=== PATIENT | female | born 1945 | race Two or more races ===

== ENCOUNTER 2016-11-04 10:44 | Emergency (ER) | payer OTHER, MEDICAID ==
[~2016-11-04] VITALS: Ht 149.9 cm; Wt 65.8 kg
[~2016-11-04 10:44] MED LIST: AML5T PO; ASPI325T4 PO; OMEP20CA74 OR; ROSU20TA14 PO
[2016-11-04 13:26] VITALS: BP 127/73
== END 2016-11-04 14:07 | disposition home or self-care (01) ==
LOC: ER 10:44 → EDUNIT# 10:44 → ER 14:07
DX: G43.B0 Ophthalmoplegic migraine, not intractable (principal); Z88.0 Allergy status to penicillin; Z88.1 Allergy status to other antibiotic agents
CPT/HCPCS: 70450

== ENCOUNTER 2018-02-18 22:00 | Inpatient (IN) | payer OTHER, MEDICAID ==
[~2018-02-18] VITALS: Ht 149.9 cm; Wt 65.7 kg
[~2018-02-18 22:00] MED LIST changes: -AML5T PO; +ATOR10TA PO; -ROSU20TA14 PO
[2018-02-18] MEDS ORDERED: cefTRIAXone 1GM/50ML D5W 50 ML IV ONE (23:30)
[2018-02-18] MEDS ORDERED: VANCOMYCIN 1GM/250ML 250 ML IV ONE (23:30)
[2018-02-18 23:38] LABS: Basophils # (auto) 0.1 uL; Basophils % (auto) 0.8 % (0.0-2.0); Eosinophils # (auto) 0.3 uL; Lymphocytes # (auto) 1.5 uL; Lymphocytes % (auto) 14.4 % (10.0-50.0); Mean Corpuscular Hemoglobin 29.6 pg (28.0-32.0); Mean Corpuscular Hgb Conc. 33.2 g/dL (32.0-36.0); Monocytes # (auto) 0.6 uL; Monocytes % (auto) 6.1 % (0.0-12.0); Neutrophils # (auto) 7.8 uL; Neutrophils % (auto) 75.7 % (37.0-80.0); Platelet Count (auto) 313 10^3/uL (140-450); Red Blood Cells 4.05 10^6/uL (4.0-5.20); Red Cell Distribution Width 14.3 % (11.8-14.3); White Blood Cell 10.4 10^3/uL (4.4-10.8)
[2018-02-18 23:53] LABS: Albumin 3.3 g/dL (3.4-5.0); Calcium 9.1 mg/dL (8.5-10.1); Potassium 3.4 mmol/L (3.5-5.1)
[2018-02-18 23:55] LABS: BUN/Creatinine Ratio 23.4
[2018-02-18 23:58] LABS: Bilirubin, Total 0.3 mg/dL (0.2-1.0); Total Protein 7.3 g/dL (6.4-8.2)
[2018-02-19] MEDS ORDERED: TEMAZEPAM 15 MG CAP PO PRN (05:00)
[2018-02-19] MEDS: CLINDAMYCIN 600MG IV 50 ML IV SCH ×3 (07:36→21:26)
[2018-02-19 09:00] VITALS: BP 115/69
[2018-02-19] MEDS: FAMOTIDINE 20 MG TAB PO SCH ×2 (09:16→21:26)
[2018-02-19] MEDS: ACETAMINOPHEN 325 MG TAB PO PRN ×2 (09:19→20:07)
[2018-02-19 12:58] VITALS: BP 116/70
[2018-02-19] MEDS: HYDROcodone-ACET 5/325MG TAB PO PRN ×2 (16:14→20:08)
[2018-02-19 17:01] VITALS: BP 121/71
[2018-02-19] MEDS: cefTRIAXone 1GM/50ML D5W 50 ML IV SCH (20:08)
[2018-02-19 22:00] VITALS: BP 109/65
[2018-02-20] MEDS: HYDROcodone-ACET 5/325MG TAB PO PRN ×3 (04:41→21:12)
[2018-02-20 05:00] VITALS: BP 122/69
[2018-02-20] MEDS: CLINDAMYCIN 600MG IV 50 ML IV SCH ×3 (05:22→22:00)
[2018-02-20 06:01] LABS: Basophils # (auto) 0.1 uL; Basophils % (auto) 0.8 % (0.0-2.0); Eosinophils # (auto) 0.4 uL; Eosinophils % (auto) 5.2 % (0.0-7.0); Hematocrit 34.6 % (36.0-46.0); Hemoglobin 11.3 g/dL (12.2-16.2); Lymphocytes # (auto) 2.3 uL; Lymphocytes % (auto) 32.6 % (10.0-50.0); Mean Corpuscular Hgb Conc. 32.5 g/dL (32.0-36.0); Monocytes # (auto) 0.6 uL; Monocytes % (auto) 8.2 % (0.0-12.0); Neutrophils # (auto) 3.7 uL; Neutrophils % (auto) 53.2 % (37.0-80.0); Nucleated Red Blood Cells % 0.1 %; Platelet Count (auto) 322 10^3/uL (140-450); Red Blood Cells 3.89 10^6/uL (4.0-5.20); Red Cell Distribution Width 14.6 % (11.8-14.3); White Blood Cell 6.9 10^3/uL (4.4-10.8)
[2018-02-20 06:29] LABS: BUN/Creatinine Ratio 26.8; Bilirubin, Total 0.2 mg/dL (0.2-1.0); Total Protein 6.5 g/dL (6.4-8.2)
[2018-02-20] MEDS: ENOXAPARIN SOD 40 MG/0.4 ML SYRINGE SC SCH (08:34)
[2018-02-20] MEDS: ONDANSETRON HCL 4 MG/2 ML VIAL IV PRN ×2 (08:34→13:56)
[2018-02-20] MEDS: FAMOTIDINE 20 MG TAB PO SCH ×2 (08:34→21:13)
[2018-02-20 09:21] VITALS: BP 120/70
[2018-02-20 12:53] VITALS: BP 128/80
[2018-02-20] MEDS ORDERED: ASPirin 325 MG TAB PO ONE (14:00)
[2018-02-20 17:19] VITALS: BP 124/70
[2018-02-20] MEDS: cefTRIAXone 1GM/50ML D5W 50 ML IV SCH (21:06)
[2018-02-20 21:53] VITALS: BP 130/67
[2018-02-20] MEDS: ATORVASTATIN 20 MG TAB PO SCH (22:00)
[2018-02-21 05:21] VITALS: BP 106/59
[2018-02-21] MEDS: CLINDAMYCIN 600MG IV 50 ML IV SCH (06:11)
[2018-02-21 08:53] VITALS: BP 111/66
[2018-02-21] MEDS: ONDANSETRON HCL 4 MG/2 ML VIAL IV PRN ×2 (09:20→20:20)
[2018-02-21] MEDS: ASPirin 325 MG TAB PO SCH (09:21)
[2018-02-21] MEDS: ENOXAPARIN SOD 40 MG/0.4 ML SYRINGE SC SCH (09:21)
[2018-02-21] MEDS: FAMOTIDINE 20 MG TAB PO SCH ×2 (09:21→20:15)
[2018-02-21] MEDS ORDERED: VANCOMYCIN PER PHARMACY 0 MG IV SCH (11:30)
[2018-02-21] MEDS ORDERED: MORPHINE SULFATE 4 MG/ML SYR/VIAL IV PRN (11:30)
[2018-02-21] MEDS: HYDROcodone-ACET 5/325MG TAB PO PRN ×2 (11:50→20:14)
[2018-02-21] MEDS: VANCOMYCIN 1GM/250ML 250 ML IV SCH (15:07)
[2018-02-21 16:06] VITALS: BP 112/65
[2018-02-21 17:00] VITALS: BP 118/70
[2018-02-21] MEDS: cefTRIAXone 1GM/50ML D5W 50 ML IV SCH (20:16)
[2018-02-21] MEDS: ATORVASTATIN 20 MG TAB PO SCH (20:16)
[2018-02-21 22:00] VITALS: BP 121/70
[2018-02-22 05:00] VITALS: BP 135/73
[2018-02-22 06:38] LABS: Basophils # (auto) 0.1 uL; Basophils % (auto) 0.9 % (0.0-2.0); Eosinophils # (auto) 0.4 uL; Eosinophils % (auto) 4.8 % (0.0-7.0); Hematocrit 39.5 % (36.0-46.0); Lymphocytes # (auto) 2.4 uL; Lymphocytes % (auto) 27.3 % (10.0-50.0); Mean Corpuscular Hemoglobin 29.3 pg (28.0-32.0); Mean Corpuscular Hgb Conc. 32.8 g/dL (32.0-36.0); Mean Corpuscular Volume 89.5 fL (80.0-100.0); Monocytes # (auto) 0.6 uL; Monocytes % (auto) 7.2 % (0.0-12.0); Neutrophils # (auto) 5.3 uL; Neutrophils % (auto) 59.8 % (37.0-80.0); Nucleated Red Blood Cells % 0.1 %; Platelet Count (auto) 400 10^3/uL (140-450); Red Blood Cells 4.42 10^6/uL (4.0-5.20); Red Cell Distribution Width 14.6 % (11.8-14.3); White Blood Cell 8.9 10^3/uL (4.4-10.8)
[2018-02-22 06:47] LABS: BUN/Creatinine Ratio 22.8; Calcium 9.3 mg/dL (8.5-10.1); Potassium 4.2 mmol/L (3.5-5.1)
[2018-02-22 08:52] VITALS: BP 118/68
[2018-02-22] MEDS: ASPirin 325 MG TAB PO SCH (09:03)
[2018-02-22] MEDS: FAMOTIDINE 20 MG TAB PO SCH ×2 (09:03→20:24)
[2018-02-22 12:13] VITALS: BP 137/76
[2018-02-22] MEDS ORDERED: VANCOMYCIN 1GM/250ML 250 ML IV SCH (12:15)
[2018-02-22] MEDS: VANCOMYCIN 1GM/250ML 250 ML IV SCH (14:57)
[2018-02-22 17:04] VITALS: BP 113/84
[2018-02-22] MEDS: diphenhdrAMINE HCL 25 MG CAP PO PRN (17:40)
[2018-02-22] MEDS: ATORVASTATIN 20 MG TAB PO SCH (20:24)
[2018-02-22] MEDS: cefTRIAXone 1GM/50ML D5W 50 ML IV SCH (20:25)
[2018-02-22 22:00] VITALS: BP 121/66
[2018-02-23 05:20] VITALS: BP 101/56
[2018-02-23 06:26] LABS: Basophils # (auto) 0.1 uL; Basophils % (auto) 0.7 % (0.0-2.0); Eosinophils # (auto) 0.4 uL; Eosinophils % (auto) 4.7 % (0.0-7.0); Hematocrit 39.1 % (36.0-46.0); Hemoglobin 12.8 g/dL (12.2-16.2); Lymphocytes # (auto) 1.9 uL; Mean Corpuscular Hemoglobin 28.8 pg (28.0-32.0); Mean Corpuscular Hgb Conc. 32.8 g/dL (32.0-36.0); Mean Corpuscular Volume 87.9 fL (80.0-100.0); Monocytes # (auto) 0.7 uL; Monocytes % (auto) 7.2 % (0.0-12.0); Neutrophils % (auto) 66.4 % (37.0-80.0); Nucleated Red Blood Cells % 0.1 %; Platelet Count (auto) 394 10^3/uL (140-450); Red Blood Cells 4.44 10^6/uL (4.0-5.20); Red Cell Distribution Width 14.5 % (11.8-14.3)
[2018-02-23 06:43] LABS: Albumin 3.5 g/dL (3.4-5.0); Potassium 4.3 mmol/L (3.5-5.1)
[2018-02-23 06:44] LABS: BUN/Creatinine Ratio 23.9
[2018-02-23 06:47] LABS: Bilirubin, Total 0.3 mg/dL (0.2-1.0); Total Protein 7.2 g/dL (6.4-8.2)
[2018-02-23 09:05] VITALS: BP 114/58
[2018-02-23] MEDS: ASPirin 325 MG TAB PO SCH (09:22)
[2018-02-23] MEDS: FAMOTIDINE 20 MG TAB PO SCH (09:23)
[2018-02-23] MEDS: diphenhdrAMINE HCL 25 MG CAP PO PRN (09:26)
[2018-02-23 12:00] VITALS: BP 124/75
[2018-02-23 13:58] VITALS: BP 124/75
[2018-02-23] MEDS: VANCOMYCIN 1GM/250ML 250 ML IV SCH (15:00)
== END 2018-02-23 15:40 | disposition home or self-care (01) | DRG 863 ==
LOC: ER 22:00 → OVERFLOW 02-19 05:28 → EAST 02-19 08:27
PROVIDERS: ADMIT Nurse Practitioner; ATTEND Internal Medicine
DX: T81.43XA Infection following a procedure, organ and space surgical site, initial encounter (principal); L03.313 Cellulitis of chest wall; E75.6 Lipid storage disorder, unspecified; E78.00 Pure hypercholesterolemia, unspecified; B95.62 Methicillin resistant Staphylococcus aureus infection as the cause of diseases classified elsewhere; E78.5 Hyperlipidemia, unspecified; Z90.12 Acquired absence of left breast and nipple; Z85.3 Personal history of malignant neoplasm of breast; Z88.0 Allergy status to penicillin; Z88.2 Allergy status to sulfonamides; Z79.899 Other long term (current) drug therapy; Z79.82 Long term (current) use of aspirin; Z80.9 Family history of malignant neoplasm, unspecified; Z83.3 Family history of diabetes mellitus
CPT/HCPCS: 36415; 76642; 80048; 80053; 85025; 87040; 87077; 87081; 87186; 87205; 96365; 96367; 96372; 96375; G0378; J0696; J2405; J3490

== ENCOUNTER → 2018-07-04 | Outpatient (CLI) | payer OTHER, MEDICAID ==
[2018-07-04 10:42] LABS: Basophils # (auto) 0.1 uL; Basophils % (auto) 1.1 % (0.0-2.0); Eosinophils # (auto) 0.2 uL; Eosinophils % (auto) 3.4 % (0.0-7.0); Hematocrit 39.2 % (36.0-46.0); Hemoglobin 12.8 g/dL (12.2-16.2); Lymphocytes # (auto) 1.8 uL; Lymphocytes % (auto) 28.8 % (10.0-50.0); Mean Corpuscular Hemoglobin 28.6 pg (28.0-32.0); Mean Corpuscular Hgb Conc. 32.7 g/dL (32.0-36.0); Mean Corpuscular Volume 87.4 fL (80.0-100.0); Monocytes # (auto) 0.4 uL; Monocytes % (auto) 6.4 % (0.0-12.0); Neutrophils # (auto) 3.8 uL; Neutrophils % (auto) 60.3 % (37.0-80.0); Nucleated Red Blood Cells % 0.1 %; Platelet Count (auto) 255 10^3/uL (140-450); Red Blood Cells 4.48 10^6/uL (4.0-5.20); Red Cell Distribution Width 14.9 % (11.8-14.3); White Blood Cell 6.3 10^3/uL (4.4-10.8)
[2018-07-04 14:57] LABS: Albumin 3.9 g/dL (3.4-5.0); Calcium 8.5 mg/dL (8.5-10.1); Potassium 4.3 mmol/L (3.5-5.1)
[2018-07-04 15:02] LABS: BUN/Creatinine Ratio 14.1; Bilirubin, Total 0.5 mg/dL (0.2-1.0)
== END | disposition home or self-care (01) ==
LOC: LAB 10:00
PROVIDERS: ATTEND Internal Medicine
DX: C50.412 Malignant neoplasm of upper-outer quadrant of left female breast (principal); M81.0 Age-related osteoporosis without current pathological fracture; E78.00 Pure hypercholesterolemia, unspecified
CPT/HCPCS: 36415; 80053; 83615; 85025

== ENCOUNTER → 2018-08-26 | Outpatient (CLI) | payer OTHER, MEDICAID ==
[2018-08-26 12:54] LABS: Urine Bacteria NONE SEEN /hpf (None Seen); Urine Blood 1+ /uL (Negative); Urine Specific Gravity 1.017 (1.001-1.035); Urine WBC 9 /hpf (0 - 5)
[2018-08-26 14:07] LABS: Cholesterol 132 mg/dL (< 200); HDL Cholesterol 34 mg/dL (40-59); LDL Cholesterol 53 mg/dL (< 100); Triglycerides 275 mg/dL (< 150)
== END | disposition home or self-care (01) ==
LOC: LAB 11:04
PROVIDERS: ATTEND Internal Medicine
DX: M08.00 Unspecified juvenile rheumatoid arthritis of unspecified site (principal); R21 Rash and other nonspecific skin eruption; E11.9 Type 2 diabetes mellitus without complications; M79.2 Neuralgia and neuritis, unspecified
CPT/HCPCS: 36415; 80061; 81001; 82043; 82607; 83036; 84443; 86038; 86200; 86431

== ENCOUNTER → 2018-09-26 | Outpatient (CLI) | payer OTHER, MEDICAID ==
[2018-09-26 10:49] LABS: Basophils # (auto) 0.1 uL; Basophils % (auto) 1.1 % (0.0-2.0); Eosinophils # (auto) 0.2 uL; Eosinophils % (auto) 2.9 % (0.0-7.0); Hematocrit 40.1 % (36.0-46.0); Hemoglobin 12.9 g/dL (12.2-16.2); Lymphocytes % (auto) 25.9 % (10.0-50.0); Mean Corpuscular Hemoglobin 28.7 pg (28.0-32.0); Mean Corpuscular Hgb Conc. 32.2 g/dL (32.0-36.0); Mean Corpuscular Volume 89.1 fL (80.0-100.0); Monocytes # (auto) 0.5 uL; Monocytes % (auto) 5.9 % (0.0-12.0); Neutrophils # (auto) 4.9 uL; Neutrophils % (auto) 64.2 % (37.0-80.0); Nucleated Red Blood Cells % 0.1 %; Platelet Count (auto) 257 10^3/uL (140-450); Red Cell Distribution Width 14.2 % (11.8-14.3); White Blood Cell 7.7 10^3/uL (4.4-10.8)
[2018-09-26 11:14] LABS: Albumin 3.6 g/dL (3.4-5.0); Calcium 8.7 mg/dL (8.5-10.1); Potassium 4.1 mmol/L (3.5-5.1)
[2018-09-26 11:20] LABS: BUN/Creatinine Ratio 19.1; Bilirubin, Total 0.3 mg/dL (0.2-1.0); Total Protein 7.2 g/dL (6.4-8.2)
== END | disposition home or self-care (01) ==
LOC: LAB 10:05
PROVIDERS: ATTEND Internal Medicine
DX: C50.412 Malignant neoplasm of upper-outer quadrant of left female breast (principal)
CPT/HCPCS: 36415; 80053; 83615; 85025

== ENCOUNTER → 2019-04-28 | Outpatient (CLI) | payer OTHER, MEDICAID ==
[~2019-04-28] MED LIST changes: +CLOB0.055 TOP; +PRED-158 PO; +RISE35TA PO; +TACR0.1O7 EX
[2019-04-28 12:09] LABS: Basophils # (auto) 0 uL; Basophils % (auto) 0.5 % (0.0-2.0); Eosinophils # (auto) 0.1 uL; Eosinophils % (auto) 2.2 % (0.0-7.0); Hematocrit 39.9 % (36.0-46.0); Hemoglobin 13.1 g/dL (12.2-16.2); Lymphocytes # (auto) 1.8 uL; Lymphocytes % (auto) 30.3 % (10.0-50.0); Mean Corpuscular Hemoglobin 28.8 pg (28.0-32.0); Mean Corpuscular Hgb Conc. 32.8 g/dL (32.0-36.0); Mean Corpuscular Volume 87.9 fL (80.0-100.0); Monocytes # (auto) 0.6 uL; Monocytes % (auto) 9.5 % (0.0-12.0); Neutrophils # (auto) 3.4 uL; Neutrophils % (auto) 57.5 % (37.0-80.0); Nucleated Red Blood Cells % 0.1 %; Platelet Count (auto) 233 10^3/uL (140-450); Red Blood Cells 4.54 10^6/uL (4.0-5.20); Red Cell Distribution Width 14.1 % (11.8-14.3); White Blood Cell 5.9 10^3/uL (4.4-10.8)
[2019-04-28 12:54] LABS: Potassium 3.7 mmol/L (3.5-5.1)
[2019-04-28 13:04] LABS: Albumin 3.7 g/dL (3.4-5.0); BUN/Creatinine Ratio 13.6; Bilirubin, Total 0.5 mg/dL (0.2-1.0); Calcium 9.1 mg/dL (8.5-10.1); Total Protein 7.4 g/dL (6.4-8.2)
== END | disposition home or self-care (01) ==
LOC: LAB 11:34
PROVIDERS: ATTEND Internal Medicine Hematology & Oncology
DX: C50.412 Malignant neoplasm of upper-outer quadrant of left female breast (principal)
CPT/HCPCS: 36415; 80053; 85025

== ENCOUNTER 2019-06-20 22:19 | Inpatient (IN) | payer OTHER, MEDICAID ==
[~2019-06-20] VITALS: Ht 149.9 cm; Wt 68.0 kg
[2019-06-20] MEDS ORDERED: VANCOMYCIN 1GM/250ML 250 ML IV ONE (23:00)
[2019-06-20] MEDS ORDERED: levoFLOXacin 500MG 100 ML IV ONE (23:00)
[2019-06-20] MEDS ORDERED: ACETAMINOPHEN 650 mg PER 20 mL UD PO ONE (23:00)
[2019-06-20] MEDS ORDERED: SODIUM CHLORIDE 0.9% 1,000 ML IV ONE (23:00)
[2019-06-20 23:37] LABS: Basophils # (auto) 0 10 ^3/uL (0-0.2); Basophils % (auto) 0.3 % (0.0-2.0); Eosinophils # (auto) 0 10 ^3/uL (0-0.8); Eosinophils % (auto) 0.3 % (0.0-7.0); Hemoglobin 13.2 g/dL (12.2-16.2); Lymphocytes # (auto) 1.6 10 ^3/uL (0.4-5.4); Mean Corpuscular Hemoglobin 28.7 pg (28.0-32.0); Mean Corpuscular Volume 86.8 fL (80.0-100.0); Monocytes # (auto) 0.9 10 ^3/uL (0-1.3); Monocytes % (auto) 6.8 % (0.0-12.0); Neutrophils # (auto) 10.7 10 ^3/uL (1.6-8.6); Neutrophils % (auto) 80.6 % (37.0-80.0); Nucleated Red Blood Cells % 0.3 %; Platelet Count (auto) 254 10^3/uL (140-450); Red Blood Cells 4.61 10^6/uL (4.0-5.20); Red Cell Distribution Width 15.1 % (11.8-14.3); White Blood Cell 13.2 10^3/uL (4.4-10.8)
[2019-06-20 23:56] LABS: INR 1.03 (0.9-1.15); Partial Thromboplastin Time 29.8 sec (23.64-32.05)
[2019-06-21 00:01] LABS: Alanine Aminotransferase 42 U/L (13-56); Albumin 3.3 g/dL (3.4-5.0); Amylase 20 U/L (25-115); Anion Gap 10 (5-15); Aspartate Aminotransferase 27 U/L (15-37); BUN/Creatinine Ratio 14.6; Blood Urea Nitrogen 12 mg/dL (7-18); Calcium 8.7 mg/dL (8.5-10.1); Carbon Dioxide 23 mmol/L (21-32); Chloride 101 mmol/L (98-107); GFR African American 88 mL/min; GFR Non-African American 73 mL/min; Glucose 108 mg/dL (74-106); Lipase 70 U/L (73-393); Magnesium 2.1 mg/dL (1.6-2.6); Potassium 3.6 mmol/L (3.5-5.1); Sodium 134 mmol/L (136-145)
[2019-06-21 00:07] LABS: Alkaline Phosphatase 107 U/L (45-117); Bilirubin, Total 0.9 mg/dL (0.2-1.0)
[2019-06-21] MEDS ORDERED: ONDANSETRON HCL 4 MG/2 ML VIAL IV ONE (00:15)
[2019-06-21] MEDS ORDERED: MORPHINE SULFATE 4 MG/ML SYR/VIAL IV ONE (00:15)
[2019-06-21 00:42] LABS: Urine Bacteria FEW /hpf (None Seen); Urine Blood TRACE /uL (Negative); Urine WBC 14 /hpf (0 - 5)
[2019-06-21] MEDS ORDERED: diphenhdrAMINE HCL 50 MG/1 ML VL IV ONE (01:15)
[2019-06-21] MEDS ORDERED: SODIUM CHLORIDE 0.9% 1,000 ML IV SCH (02:47)
[2019-06-21] MEDS ORDERED: TEMAZEPAM 15 MG CAP PO PRN (03:00)
[2019-06-21] MEDS ORDERED: ONDANSETRON HCL 4 MG/2 ML VIAL IV PRN (03:00)
[2019-06-21] MEDS ORDERED: NITROGLYCERIN 0.4 MG SL TAB SL PRN (03:15)
[2019-06-21] MEDS ORDERED: MORPHINE SULF INJ 2 MG/ML SYRINGE 1ML IV PRN (03:15)
--- NOTE | 2019-06-21 04:30 | NUR ---
Telemetry admit from MAEVE LOPEZ admitted to Telemetry unit. Patient oriented to Sarah Thomas RN primary RN, unit, room, bed, and unit policies regarding patient care and visiting hours. Patient now on continuous telemetry monitoring, tele box #4 and telemetry reading on arrival to unit is sinus tachycardia HR 104. Patient placed on bedside oxygen, weighed by bedscale and encouraged to call if they need something. All questions and concerns addressed, patient verbalized understanding.
--- NOTE | 2019-06-21 05:00 | NUR ---
Paged EMPLOYMENT AND CLAIMS AIDE Siddharth RE: Pain patient reports generalized body pain 12/22, awaiting call back, will continue care.
[2019-06-21 05:25] VITALS: BP 161/84
[2019-06-21 05:42] LABS: CRP High Sensitivity > 19 mg/dL (< 0.3); Lactate Dehydrogenase 194 U/L (84-246)
--- NOTE | 2019-06-21 05:45 | NUR ---
Rounds patient alert and oriented x 4, clear speech, follows direction. On oxygen at 2L via NC with even and unlabored respirations. Gallagher intact and patent and draining to gravity. BSC within reach. Bed lowest locked position with side rails up x 2 and selena light within reach, instructed to call for assistance PRN. Will continue care.
--- NOTE | 2019-06-21 05:55 | NUR ---
Received call back updated on patient status, new order received, will carry out.
[2019-06-21] MEDS ORDERED: traMADol HCL 50 MG TAB PO ONE (06:00)
--- NOTE | 2019-06-21 06:00 | NUR ---
Cooling Measures applied. Patient currently has temp of 100.4 , cooling measures in place.
[2019-06-21] MEDS: ACETAMINOPHEN 500 MG TAB PO PRN ×2 (06:29→15:38)
--- NOTE | 2019-06-21 07:20 | NUR ---
Closing note patient on tele monitor #4 sinus tachycardia 113 o2 sat 98% on 2L via NC, no s/s of distress. Bed in lowest locked postion with side rails up x 2 and call light within reach. Endorsed care to dayshift VADIM Saleh.
[2019-06-21] MEDS: ALBUTEROL SULF HFA 90MCG INH 200DOSE IN SCH ×2 (08:20→15:38)
--- NOTE | 2019-06-21 08:20 | NUR ---
Respiratory note: MDI BREATHING TX ADMINISTERED BY RN. WILL RETURN FOR NEXT SCHEDULED TX.
[2019-06-21 09:00] VITALS: BP 118/67
[2019-06-21] MEDS ORDERED: AZITHROMYCIN 500MG/ 250ML 250 ML IV SCH (10:00)
[2019-06-21] MEDS ORDERED: AZITHROMYCIN DIHYD 500 MG VIAL IV SCH (10:00)
[2019-06-21] MEDS: CHOLECALCIFEROL (VITD3) 1,000IU=25mCg TAB PO SCH (10:00)
[2019-06-21] MEDS: ZINC SULFATE 220mg CAP or TAB PO SCH (10:00)
[2019-06-21 10:43] VITALS: BP 161/84
--- NOTE | 2019-06-21 10:51 | NUR ---
Social Service consult regarding Advance Directives. Attempted to provide pt with an Advance Directive Form however at this point pt is in Isolation. powder worker tnt will follow up with pt prior to discharge.
[2019-06-21] MEDS: FAMOTIDINE 20 MG TAB PO SCH ×2 (11:47→22:30)
[2019-06-21] MEDS: ASCORBIC ACID 500 MG TAB PO SCH (11:47)
[2019-06-21] MEDS: ENOXAPARIN SOD 40 MG/0.4 ML SYRINGE SC SCH (11:48)
[2019-06-21 13:00] VITALS: BP 129/74
--- NOTE | 2019-06-21 14:16 | NUR ---
assessment Patient is a 73 year old female who is alert and oriented. Prior to admission patient lived home with family and functioned independently. Patient informed me she is able to care for her own ADLs. Per patient she will return home to her prior living arrangements post discharge and family will transport her home. Patient has a fww for home use. Patients PCP is Dr Sanches. Patient is waiting for Covid 19 results. Patient may need home 02 on discharge. I informed patient she has a right to speak to a manager social media regarding all care. I informed patient she has a right to participate in any and all discharge planning. Patient does not have a POA and advanced directive. I have offered patient information on POA and advanced directives. I informed the patient the advantages and benefits of having an Advanced Directive. Patient verbalized understanding and agreed to discharge plan. Addendum: 06/21/19 at 1417 by Odalis AYERS Amended: Links added.
[2019-06-21] MEDS: AZITHROMYCIN 250 MG TAB PO SCH (15:38)
--- NOTE | 2019-06-21 15:38 | NUR ---
Respiratory note: MDI BREATHING TX ADMINISTERED BY VADIM SANCHEZ. WILL CONTINUE ORDERED.
[2019-06-21 17:00] VITALS: BP 134/83
--- NOTE | 2019-06-21 19:45 | NUR ---
Opening Shift Note Received report from mirian Saleh RN. Assumed care of patient, awake and alert. No S/S of distress/SOB or pain. Instructed on POC and to call for assist PRN, will continue to monitor for changes Q1hr and PRN.
[2019-06-21 20:00] VITALS: BP 138/68
--- NOTE | 2019-06-21 20:00 | NUR ---
Received report from VADIM Garcia that patient is negative for COVID-19. Notified patient and to get ready for transfer to [facility].
--- NOTE | 2019-06-21 20:28 | NUR ---
Report given to VADIM Mckeno.
--- NOTE | 2019-06-21 20:45 | NUR ---
Transfer patient to [facility] room 222A with all personal belongings, phone and with 2LNC oxygen via wheelchair accompanied by johnson Garcia RN. No distress noted during transfer. Patient was happy with the negative result and the transfer.
--- NOTE | 2019-06-21 20:45 | NUR ---
Opening Shift Note Received patient from VADIM Hernandez. Assumed care. Patient is awake and alert. No S/S of distress/SOB or pain. Instructed on POC and to call for assist PRN, will continue to monitor for changes Q1hr and PRN. Medications placed in Pyxis cassette.
[2019-06-21] MEDS ORDERED: levoFLOXacin 500MG 100 ML IV SCH (22:00)
[2019-06-21] MEDS: AZTREONAM 1GM INJ 1 GM in D5W 5% 50 ML IV SCH (22:30)
[2019-06-22] MEDS: ACETAMINOPHEN 500 MG TAB PO PRN ×2 (01:04→20:34)
[2019-06-22 05:08] VITALS: BP 126/69
[2019-06-22] MEDS: AZTREONAM 1GM INJ 1 GM in D5W 5% 50 ML IV SCH ×2 (05:58→13:48)
[2019-06-22 06:20] LABS: Basophils # (auto) 0 10 ^3/uL (0-0.2); Basophils % (auto) 0.5 % (0.0-2.0); Eosinophils # (auto) 0.2 10 ^3/uL (0-0.8); Eosinophils % (auto) 2.4 % (0.0-7.0); Hematocrit 33.8 % (36.0-46.0); Hemoglobin 11.2 g/dL (12.2-16.2); Lymphocytes # (auto) 1.4 10 ^3/uL (0.4-5.4); Lymphocytes % (auto) 19.7 % (10.0-50.0); Mean Corpuscular Hemoglobin 28.7 pg (28.0-32.0); Mean Corpuscular Hgb Conc. 33.1 g/dL (32.0-36.0); Mean Corpuscular Volume 86.5 fL (80.0-100.0); Monocytes # (auto) 0.7 10 ^3/uL (0-1.3); Monocytes % (auto) 10.1 % (0.0-12.0); Neutrophils # (auto) 4.7 10 ^3/uL (1.6-8.6); Neutrophils % (auto) 67.3 % (37.0-80.0); Nucleated Red Blood Cells % 0.1 %; Platelet Count (auto) 222 10^3/uL (140-450)
[2019-06-22 06:54] LABS: Albumin 2.6 g/dL (3.4-5.0); BUN/Creatinine Ratio 12.5; Bilirubin, Total 0.4 mg/dL (0.2-1.0); Calcium 8.5 mg/dL (8.5-10.1); Total Protein 6.7 g/dL (6.4-8.2)
--- NOTE | 2019-06-22 08:00 | NUR ---
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
[2019-06-22] MEDS: CHOLECALCIFEROL (VITD3) 1,000IU=25mCg TAB PO SCH (08:49)
[2019-06-22] MEDS: FAMOTIDINE 20 MG TAB PO SCH ×2 (08:50→21:42)
[2019-06-22] MEDS: AZITHROMYCIN 250 MG TAB PO SCH (08:50)
[2019-06-22] MEDS: ZINC SULFATE 220mg CAP or TAB PO SCH (08:50)
[2019-06-22] MEDS: ASCORBIC ACID 500 MG TAB PO SCH (08:51)
[2019-06-22] MEDS: ENOXAPARIN SOD 40 MG/0.4 ML SYRINGE SC SCH (08:51)
[2019-06-22 09:00] VITALS: BP 118/66
--- NOTE | 2019-06-22 12:20 | NUR ---
DR GREWAL AT BED SIDE FOLLOWING UP ON PT WITH NEW ORDERS, PT VERBALIS UNDERSTANDING
[2019-06-22 13:00] VITALS: BP 127/77
--- NOTE | 2019-06-22 13:48 | NUR ---
INCENTIVE SPIROMETER EDUCATED PT HOW TO USE IT AND WHY, VERBALIS UNDERSTANDING
--- NOTE | 2019-06-22 14:41 | NUR ---
DR GUZMAN IS HERE FOLLOWING UP ON PT, AWARE OF THE COVID 19 NEGATIVE RESULTS
--- NOTE | 2019-06-22 15:42 | NUR ---
Social Service consult regarding Advance Directives. Provided pt with information on Advance Directives and Durable power of senior attorney Form. Pt verbalized understand and accepted information. Will contact [facility] for any further concerns or issues.
[2019-06-22 17:00] VITALS: BP 136/51
--- NOTE | 2019-06-22 18:24 | NUR ---
PT CONTINUE STABLE, SITTING UP EATING DINNER, CONTINUE MONITORING
--- NOTE | 2019-06-22 19:10 | NUR ---
Received report from the Day Shift VADIM Evans. Pt. in bed calm and resting. Initial assessment done.
--- NOTE | 2019-06-22 19:43 | NUR ---
SR with HR @ 94 @ the monitor # 37. Pt. denies any chest pain or chest discomfort.
--- NOTE | 2019-06-22 20:34 | NUR ---
Pt. verbalized headache about 8/10 scale with temp. of 99.4 Deg. F. Pt. given Tylenol 1000 mg. po. as ordered by the Doctor.
--- NOTE | 2019-06-22 21:34 | NUR ---
Pt. headache scale about 3-4/10 scale @ this time. Will continue to monitor and observe pt. pain and comfort level.
--- NOTE | 2019-06-22 21:42 | NUR ---
Med. as scheduled given. Pt. made aware of the med. mechanism of action. Pt. verbalized understanding.
[2019-06-22 22:00] VITALS: BP 134/81
--- NOTE | 2019-06-23 00:10 | NUR ---
Pt. is calm and sleeping. Still on 2L/NC continuous. No s/s of Sob/dyspnea. No s/s of pain or discomfort. No verbalization of pain @ this time. SR @ the 80's @ Tele # 37.
--- NOTE | 2019-06-23 04:00 | NUR ---
Pt. calm and sleeping. No verbalization of headache or any pain @ this time. Pt. sleeping undisturbed. SR @ 70 's @ Tele # 37.
[2019-06-23 05:00] VITALS: BP 130/72
--- NOTE | 2019-06-23 07:20 | NUR ---
Opening Shift Note Assumed care of patient, patient is sitting in bed A&Ox4. No S/S of distress, dizziness, or SOB. Patient C/O a headache rating it 4/10 at the moment. Instructed on POC and to call for assistance as needed, call light within reach. Safety measures in place, gurney set to lowest locked position x 2 rails up . Will continue to monitor for changes Q1hr and PRN.
[2019-06-23 07:21] LABS: Basophils # (auto) 0 10 ^3/uL (0-0.2); Basophils % (auto) 0.8 % (0.0-2.0); Eosinophils # (auto) 0.3 10 ^3/uL (0-0.8); Eosinophils % (auto) 5.3 % (0.0-7.0); Hematocrit 33.9 % (36.0-46.0); Hemoglobin 11.5 g/dL (12.2-16.2); Lymphocytes # (auto) 1.9 10 ^3/uL (0.4-5.4); Lymphocytes % (auto) 33.2 % (10.0-50.0); Mean Corpuscular Hemoglobin 28.9 pg (28.0-32.0); Mean Corpuscular Hgb Conc. 33.8 g/dL (32.0-36.0); Mean Corpuscular Volume 85.5 fL (80.0-100.0); Monocytes # (auto) 0.5 10 ^3/uL (0-1.3); Monocytes % (auto) 9.1 % (0.0-12.0); Neutrophils # (auto) 2.9 10 ^3/uL (1.6-8.6); Neutrophils % (auto) 51.6 % (37.0-80.0); Nucleated Red Blood Cells % 0.1 %; Platelet Count (auto) 271 10^3/uL (140-450); Red Blood Cells 3.97 10^6/uL (4.0-5.20); Red Cell Distribution Width 14.5 % (11.8-14.3); White Blood Cell 5.7 10^3/uL (4.4-10.8)
[2019-06-23 07:34] LABS: Albumin 2.7 g/dL (3.4-5.0); Potassium 3.7 mmol/L (3.5-5.1)
[2019-06-23 07:38] LABS: Bilirubin, Total 0.4 mg/dL (0.2-1.0); Total Protein 7.2 g/dL (6.4-8.2)
[2019-06-23 09:00] VITALS: BP 137/81
[2019-06-23] MEDS: FAMOTIDINE 20 MG TAB PO SCH ×2 (09:34→22:05)
[2019-06-23] MEDS: ENOXAPARIN SOD 40 MG/0.4 ML SYRINGE SC SCH (09:35)
[2019-06-23] MEDS: ACETAMINOPHEN 500 MG TAB PO PRN (09:46)
[2019-06-23] MEDS ORDERED: levoFLOXacin 250 MG TAB PO SCH (10:00)
[2019-06-23] MEDS: DOXYCYCLINE 100MG/250ML 250 ML IV SCH ×2 (11:15→22:40)
[2019-06-23] MEDS ORDERED: DOXYCYCLINE 100MG/250ML 250 ML IV ONE (11:15)
[2019-06-23 13:00] VITALS: BP 138/74
[2019-06-23 17:00] VITALS: BP 142/82
[2019-06-23] MEDS: IPRATROPIUM BROM 0.5 MG/2.5ML INH SOL NEB SCH (18:52)
[2019-06-23] MEDS: ALBUTEROL SULF 2.5 MG/0.5ML(0.5%) NEB SOLN NEB PRN (18:52)
--- NOTE | 2019-06-23 18:59 | NUR ---
Respiratory note: AT BEDSIDE FOR MED ZHENG RAMSEY.
--- NOTE | 2019-06-23 19:10 | NUR ---
Received report from the Day Shift RN. Karimi. Initial assessment done. Pt. resting in bed with HOB up @ 75 deg. angle. Pt. calm and quiet. No s/s of sob /dyspnea. Breathing regular and unlabored. Diminished to clear lungs sound bilaterally. Denies pain when asked/assessed. SR @ the 80's @ the monitor # 37. Keep pt.safe and telephone lineworker bed. Call-light within pt.'s reach.
--- NOTE | 2019-06-23 19:14 | NUR ---
CLOSING SHIFT NOTE ENDORSED CARE OT ENAMEL FINISHER VADIM LEMON. PATIENT HAS NO S/S OF DISTRESS/SOB OR PAIN AT THIS TIME.
--- NOTE | 2019-06-23 20:00 | NUR ---
Assessment done and completed. Pt. calm and quiet resting in bed. Provided bedside nsg. care by caregivers. Call-light within pt. reach.
[2019-06-23 22:00] VITALS: BP 166/91
[2019-06-23 23:00] VITALS: BP 142/82
[2019-06-24] MEDS: IPRATROPIUM BROM 0.5 MG/2.5ML INH SOL NEB SCH ×4 (00:25→13:40)
--- NOTE | 2019-06-24 00:26 | NUR ---
Respiratory note: AT BEDSIDE FOR MED ZHENG RAMSEY.
[2019-06-24 05:00] VITALS: BP 139/66
[2019-06-24] MEDS: ACETAMINOPHEN 500 MG TAB PO PRN (05:11)
--- NOTE | 2019-06-24 05:15 | NUR ---
Pt. given ice pack to place on her forehead while head is tilting back to relieve mild nose bleeding due to warm room temp. or high humidity of the room environment. Room temp. lowered down by the POULTRY CUTTER.
--- NOTE | 2019-06-24 06:11 | NUR ---
Pt. headache decrease to 2/10 scale @ 0611, an hour after med. given.
--- NOTE | 2019-06-24 08:00 | NUR ---
Opening Shift Note Assumed care of patient, awake, alert and oriented X4. No S/S of distress/SOB, complains of anterior headache, 10/22, informed prescribed pain administered at 0500, informed will notify provider, verbalized understanding. Tele# 37, sinus rhythm @ 76 bpm. IV to right forearm, 22 gauge, patent and saline locked. Instructed on POC and to call for assist PRN, verbalized understanding. Bed locked, in lowest position, call light within reach, will continue to monitor for changes Q1hr and PRN.
[2019-06-24 09:08] VITALS: BP 144/75
[2019-06-24] MEDS ORDERED: KETOROLAC TROMETH 15 mg/ml 1ML VL IV ONE (09:15)
[2019-06-24] MEDS ORDERED: KETOROLAC TROMETH 30 MG/ML 1ML VIAL IV ONE (09:30)
[2019-06-24] MEDS: FAMOTIDINE 20 MG TAB PO SCH (09:37)
[2019-06-24] MEDS: ENOXAPARIN SOD 40 MG/0.4 ML SYRINGE SC SCH (09:37)
[2019-06-24] MEDS: DOXYCYCLINE 100MG/250ML 250 ML IV SCH (09:38)
--- NOTE | 2019-06-24 10:15 | NUR ---
ROUNDS Dr Ortega at bedside for rounds, new orders received and followed through. Patient updated on plan of care, verbalized understanding.
--- NOTE | 2019-06-24 10:25 | NUR ---
PT Patient pleasantly refused to be OOB during visit with c/o ANTIONETTE and also stated she is walking on her own from bed><bathroom. Addendum: 06/24/19 at 1028 by KATHERINE PEREZ PTT Amended: Links added.
[2019-06-24 12:38] VITALS: BP 137/81
[2019-06-24 12:58] VITALS: BP 137/81
[2019-06-24] MEDS: ALBUTEROL SULF 2.5 MG/0.5ML(0.5%) NEB SOLN NEB PRN (13:37)
--- NOTE | 2019-06-24 13:40 | NUR ---
Respiratory note: PT REFUSED MED NEB TX. NO SIGNS OR SYMPTOMS OF RESPIRATORY DISTRESS NOTED. HR 77, RR 14, SPO2 99% ON RA, BS CLEAR AND DIMINISHED. RN WILL BE INFORMED OF PT REFUSAL.
--- NOTE | 2019-06-24 15:46 | NUR ---
Discharge instructions given as ordered. Encourage to follow up with PMD as instructed. All questions and concerns addressed. Patient verbalized understanding. Medication reconciliation form completed and copy given to patient. IV removed with catheter intact, pressure dressing applied. Telemetry unit returned to ICU. Patient awaiting transportation.
--- NOTE | 2019-06-24 15:59 | NUR ---
Patient taken to vehicle via wheelchair with all personal belongings, accompanied by staff and family member. No distress noted at time of departure.
== END 2019-06-24 16:00 | disposition home or self-care (01) | DRG 871 ==
LOC: EDBD 22:19 → ER 22:24 → TELE 22:25 → TELE-EAST 06-21 04:13 → TELE-CENTR 06-21 20:48
PROVIDERS: ADMIT Nurse Practitioner; ATTEND Internal Medicine
DX: A41.9 Sepsis, unspecified organism (principal); J18.9 Pneumonia, unspecified organism; J96.01 Acute respiratory failure with hypoxia; N39.0 Urinary tract infection, site not specified; E44.0 Moderate protein-calorie malnutrition; I50.32 Chronic diastolic (congestive) heart failure; Z20.828 Contact with and (suspected) exposure to other viral communicable diseases; T36.8X5A Adverse effect of other systemic antibiotics, initial encounter; D72.829 Elevated white blood cell count, unspecified; I11.0 Hypertensive heart disease with heart failure; R73.03 Prediabetes; E78.5 Hyperlipidemia, unspecified; Z87.11 Personal history of peptic ulcer disease; Z88.1 Allergy status to other antibiotic agents; Z88.5 Allergy status to narcotic agent; Z88.0 Allergy status to penicillin; Z88.2 Allergy status to sulfonamides; Z83.3 Family history of diabetes mellitus; Z80.9 Family history of malignant neoplasm, unspecified; Z68.30 Body mass index [BMI] 30.0-30.9, adult; Z03.818 Encounter for observation for suspected exposure to other biological agents ruled out
CPT/HCPCS: 36415; 36600; 71045; 71250; 80053; 81001; 82150; 82728; 82805; 83036; 83605; 83615; 83690; 83735; 83880; 84443; 84484; 85025; 85379; 85610; 85730; 86141; 87040; 87070; 87081; 87086; 87804; 87880; 93005; 94640; 97116; 97163; 97530; G0378; J1885; J1956; J2405; J3490; J7060

== ENCOUNTER → 2019-08-28 | Outpatient (CLI) | payer OTHER, MEDICAID ==
[~2019-08-28] MED LIST changes: -RISE35TA PO
[2019-08-28 13:16] LABS: Basophils # (auto) 0.1 10 ^3/uL (0-0.2); Basophils % (auto) 1.1 % (0.0-2.0); Eosinophils # (auto) 0.2 10 ^3/uL (0-0.8); Eosinophils % (auto) 2.8 % (0.0-7.0); Hemoglobin 13.1 g/dL (12.2-16.2); Lymphocytes # (auto) 2.3 10 ^3/uL (0.4-5.4); Lymphocytes % (auto) 30.2 % (10.0-50.0); Mean Corpuscular Hemoglobin 28.8 pg (28.0-32.0); Mean Corpuscular Hgb Conc. 32.7 g/dL (32.0-36.0); Mean Corpuscular Volume 88.1 fL (80.0-100.0); Monocytes # (auto) 0.6 10 ^3/uL (0-1.3); Monocytes % (auto) 7.9 % (0.0-12.0); Neutrophils # (auto) 4.5 10 ^3/uL (1.6-8.6); Platelet Count (auto) 263 10^3/uL (140-450); Red Blood Cells 4.54 10^6/uL (4.0-5.20); White Blood Cell 7.7 10^3/uL (4.4-10.8)
[2019-08-28 14:03] LABS: Albumin 3.6 g/dL (3.4-5.0); BUN/Creatinine Ratio 16.7; Bilirubin, Total 0.4 mg/dL (0.2-1.0); Calcium 8.7 mg/dL (8.5-10.1); Total Protein 7.4 g/dL (6.4-8.2)
== END | disposition home or self-care (01) ==
LOC: LAB 12:55
PROVIDERS: ATTEND Internal Medicine
DX: E11.9 Type 2 diabetes mellitus without complications (principal); N39.0 Urinary tract infection, site not specified
CPT/HCPCS: 36415; 80053; 82150; 83690; 85025; 87086

== ENCOUNTER → 2019-11-22 | Outpatient (CLI) | payer OTHER, MEDICAID ==
[2019-11-22 12:24] LABS: Basophils # (auto) 0.1 10 ^3/uL (0-0.2); Basophils % (auto) 1.2 % (0.0-2.0); Eosinophils # (auto) 0.2 10 ^3/uL (0-0.8); Eosinophils % (auto) 2.8 % (0.0-7.0); Hematocrit 38.6 % (36.0-46.0); Hemoglobin 12.5 g/dL (12.2-16.2); Lymphocytes # (auto) 2.4 10 ^3/uL (0.4-5.4); Mean Corpuscular Hemoglobin 28.7 pg (28.0-32.0); Mean Corpuscular Hgb Conc. 32.3 g/dL (32.0-36.0); Mean Corpuscular Volume 88.8 fL (80.0-100.0); Monocytes # (auto) 0.6 10 ^3/uL (0-1.3); Monocytes % (auto) 7.4 % (0.0-12.0); Neutrophils # (auto) 4.5 10 ^3/uL (1.6-8.6); Neutrophils % (auto) 57.6 % (37.0-80.0); Nucleated Red Blood Cells % 0.1 %; Platelet Count (auto) 278 10^3/uL (140-450); Red Blood Cells 4.35 10^6/uL (4.0-5.20); Red Cell Distribution Width 14.2 % (11.8-14.3); White Blood Cell 7.9 10^3/uL (4.4-10.8)
[2019-11-22 12:29] LABS: Albumin 3.7 g/dL (3.4-5.0); Calcium 8.8 mg/dL (8.5-10.1)
[2019-11-22 12:33] LABS: BUN/Creatinine Ratio 12.5; Bilirubin, Total 0.5 mg/dL (0.2-1.0); Total Protein 7.2 g/dL (6.4-8.2)
== END | disposition home or self-care (01) ==
LOC: LAB 12:01
PROVIDERS: ATTEND Internal Medicine
DX: C50.912 Malignant neoplasm of unspecified site of left female breast (principal)
CPT/HCPCS: 36415; 80053; 83615; 85025

== ENCOUNTER → 2019-12-19 | Outpatient (CLI) | payer OTHER, MEDICAID | END | disposition home or self-care (01) | LOC: LAB 11:34 | PROVIDERS: ATTEND Urology | DX: N28.1 Cyst of kidney, acquired (principal) | CPT/HCPCS: 36415; 82565; 84520 ==

== ENCOUNTER 2020-02-06 07:33 | Inpatient (IN) | payer OTHER, MEDICAID ==
[2020-02-02 13:37] LABS: Urine Bacteria FEW /hpf (None Seen); Urine Blood 3+ /uL (Negative); Urine Specific Gravity 1.008 (1.001-1.035); Urine WBC 28 /hpf (0 - 5)
[2020-02-02 13:39] LABS: Basophils # (auto) 0.1 10 ^3/uL (0-0.2); Basophils % (auto) 0.8 % (0.0-2.0); Eosinophils # (auto) 0.3 10 ^3/uL (0-0.8); Eosinophils % (auto) 3.1 % (0.0-7.0); Hematocrit 41.2 % (36.0-46.0); Hemoglobin 13.5 g/dL (12.2-16.2); Lymphocytes # (auto) 2.7 10 ^3/uL (0.4-5.4); Mean Corpuscular Hemoglobin 29.6 pg (28.0-32.0); Mean Corpuscular Hgb Conc. 32.8 g/dL (32.0-36.0); Mean Corpuscular Volume 90.2 fL (80.0-100.0); Monocytes # (auto) 0.6 10 ^3/uL (0-1.3); Monocytes % (auto) 6.7 % (0.0-12.0); Neutrophils # (auto) 4.9 10 ^3/uL (1.6-8.6); Neutrophils % (auto) 57.4 % (37.0-80.0); Nucleated Red Blood Cells % 0.1 %; Platelet Count (auto) 283 10^3/uL (140-450); Red Blood Cells 4.57 10^6/uL (4.0-5.20); Red Cell Distribution Width 14.4 % (11.8-14.3); White Blood Cell 8.5 10^3/uL (4.4-10.8)
[2020-02-02 13:50] LABS: Albumin 3.8 g/dL (3.4-5.0); Calcium 8.7 mg/dL (8.5-10.1); Potassium 3.7 mmol/L (3.5-5.1)
[2020-02-02 13:52] LABS: BUN/Creatinine Ratio 11.8
[2020-02-02 13:53] LABS: INR 0.95 (0.9-1.15); Partial Thromboplastin Time 24.2 sec (23.0-31.2)
[2020-02-02 13:54] LABS: Bilirubin, Total 0.3 mg/dL (0.2-1.0); Total Protein 7.6 g/dL (6.4-8.2)
[~2020-02-06] VITALS: Ht 149.9 cm; Wt 71.3 kg
[~2020-02-06 07:33] MED LIST changes: +AMLO-483 PO; +ANAS1TAB7 PO; +CALC1TAB31 PO; -CLOB0.055 TOP; +DUPI1INJ SC; -PRED-158 PO; -TACR0.1O7 EX
[2020-02-06] MEDS ORDERED: LIDOCAINE 1% HCL (LOCAL ANESTH.) INJ 20ML MDV ONE (08:27)
[2020-02-06] MEDS ORDERED: MANNITOL FTV 25% 12.5 GM/50 ML 0 ML IV ONE (08:28)
[2020-02-06] MEDS ORDERED: BUPIVACAINE 0.25% INJ 50ML VIAL ONE (08:28)
[2020-02-06] MEDS ORDERED: cefOXitin 2GM/100ML 100 ML IV ONE (08:40)
[2020-02-06] MEDS ORDERED: LIDOCAINE 1% (LOCAL ANESTH.) PF 5ml SDV ONE (09:01)
[2020-02-06] MEDS ORDERED: SUCCINYLCHOLINE CHLORIDE 20 MG/ML 10ML VIAL IV ONE (09:02)
[2020-02-06] MEDS ORDERED: MIDAZOLAM HCL 1MG/1ML-2 ML VIAL ONE (09:04)
[2020-02-06] MEDS ORDERED: METOCLOPRAMIDE HCL 5MG/ml INJ 2ml VIAL ONE (09:05)
[2020-02-06] MEDS ORDERED: ROCURONIUM 10MG/ML 10ML VIAL IV ONE (09:07)
[2020-02-06] MEDS ORDERED: ETOMIDATE (2MG/ML) 20ML VIAL IV ONE (09:07)
[2020-02-06] MEDS ORDERED: fentaNYL CITRATE 100 MCG/2 ML VL ONE (09:19)
[2020-02-06] MEDS ORDERED: ONDANSETRON HCL 4 MG/2 ML VIAL IV PRN ×2 (09:45→11:45)
[2020-02-06] MEDS ORDERED: NALOXONE HCL 0.4 MG/ML VIAL IV PRN (09:45)
[2020-02-06] MEDS ORDERED: hydrALAZINE HCL 20 MG/ML VL IV PRN (09:45)
[2020-02-06] MEDS ORDERED: HYDROmorphone HCL 2 MG/ML VL IV PRN ×2 (09:45)
[2020-02-06] MEDS ORDERED: DexAMETHasone SOD PHOS 10MG/1ML VIAL INJ ONE (10:36)
[2020-02-06] MEDS ORDERED: GLYCOPYRROLATE 0.2 MG/ML 1ML VIAL ONE (10:37)
[2020-02-06] MEDS ORDERED: NEOSTIGMINE 1 MG/ML INJ (10mg/10ML VIAL) ONE (10:37)
[2020-02-06] MEDS ORDERED: LIDOCAINE W/ EPINEPHRINE 1% 20ML VIAL ONE (10:49)
[2020-02-06] MEDS ORDERED: ONDANSETRON HCL 4 MG/2 ML VIAL IV ONE (11:30)
[2020-02-06] MEDS ORDERED: HYDROmorphone HCL 2 MG/ML VL IV ONE (11:30)
[2020-02-06] MEDS ORDERED: diphenhdrAMINE HCL 50 MG/1 ML VL IV PRN (11:45)
[2020-02-06] MEDS ORDERED: ACETAMINOPHEN/CODEINE#3 (300/30mg) TAB PO PRN (11:45)
[2020-02-06] MEDS ORDERED: NITROGLYCERIN 0.4 MG SL TAB SL PRN (11:45)
[2020-02-06] MEDS: D5W/SOD CHL 0.45% 1,000 ML IV SCH ×2 (11:45→19:45)
[2020-02-06] MEDS ORDERED: MORPHINE SULF INJ 2 MG/ML SYRINGE 1ML IV PRN (11:45)
[2020-02-06 15:46] LABS: Calcium 7.8 mg/dL (8.5-10.1); Potassium 3.8 mmol/L (3.5-5.1)
[2020-02-06] MEDS: HYDROmorphone HCL 2 MG/ML VL IV PRN ×3 (16:14→23:26)
[2020-02-06 16:38] VITALS: BP 134/74
[2020-02-06 22:00] VITALS: BP 139/75
[2020-02-06] MEDS ORDERED: PATIENTS OWN MEDICATION (Atorvastatin Calcium (Lipitor) 1 TAB) PO SCH (22:00)
[2020-02-06] MEDS ORDERED: ATORVASTATIN 20 MG TAB PO SCH (22:00)
[2020-02-07] MEDS: D5W/SOD CHL 0.45% 1,000 ML IV SCH ×2 (03:45→11:45)
[2020-02-07 05:00] VITALS: BP 118/74
[2020-02-07 07:08] LABS: Basophils # (auto) 0 10 ^3/uL (0-0.2); Eosinophils # (auto) 0 10 ^3/uL (0-0.8); Hematocrit 39.3 % (36.0-46.0); Hemoglobin 12.6 g/dL (12.2-16.2); Lymphocytes # (auto) 1.1 10 ^3/uL (0.4-5.4); Lymphocytes % (auto) 8.8 % (10.0-50.0); Mean Corpuscular Hemoglobin 28.8 pg (28.0-32.0); Mean Corpuscular Hgb Conc. 31.9 g/dL (32.0-36.0); Mean Corpuscular Volume 90.1 fL (80.0-100.0); Monocytes # (auto) 0.8 10 ^3/uL (0-1.3); Monocytes % (auto) 6.6 % (0.0-12.0); Neutrophils # (auto) 10.5 10 ^3/uL (1.6-8.6); Neutrophils % (auto) 84.6 % (37.0-80.0); Platelet Count (auto) 273 10^3/uL (140-450); Red Blood Cells 4.36 10^6/uL (4.0-5.20); Red Cell Distribution Width 14.8 % (11.8-14.3); White Blood Cell 12.4 10^3/uL (4.4-10.8)
[2020-02-07 07:31] LABS: Albumin 3.4 g/dL (3.4-5.0); BUN/Creatinine Ratio 12.5; Calcium 7.8 mg/dL (8.5-10.1)
[2020-02-07 07:46] LABS: Bilirubin, Total 0.6 mg/dL (0.2-1.0); Total Protein 6.9 g/dL (6.4-8.2)
[2020-02-07 09:14] VITALS: BP 146/67
[2020-02-07] MEDS ORDERED: amLODIPine BESYLATE 5 MG TAB PO SCH (10:00)
[2020-02-07] MEDS ORDERED: PATIENTS OWN MEDICATION (Amlodipine Besylate 1 TAB) PO SCH (10:00)
[2020-02-07] MEDS ORDERED: PANTOPRAZOLE 40 MG TAB PO SCH (10:00)
[2020-02-07] MEDS ORDERED: OMEPRAZOLE 20MG/10ML ORAL SUSP PO SCH (10:00)
[2020-02-07] MEDS ORDERED: ANASTROZOLE 1 MG PO SCH (10:00)
[2020-02-07] MEDS ORDERED: HYDROcodone-ACET 5/325MG TAB PO PRN (10:45)
[2020-02-07 13:00] VITALS: BP 124/61
[2020-02-07 16:58] VITALS: BP 129/67
== END 2020-02-07 20:02 | disposition home or self-care (01) | DRG 657 ==
LOC: OVERFLOW 07:33 → EDSTATUS 12:45 → WEST WING 13:30
PROVIDERS: ADMIT Urology; ATTEND Internal Medicine
PROC: 8E0W4CZ Robotic Assisted Procedure of Trunk Region, Percutaneous Endoscopic Approach (ICD-10-PCS; 2020-02-06)
PROC: 0TT04ZZ Resection of Right Kidney, Percutaneous Endoscopic Approach (ICD-10-PCS; principal; 2020-02-06 09:04)
DX: C64.1 Malignant neoplasm of right kidney, except renal pelvis (principal); I50.32 Chronic diastolic (congestive) heart failure; I11.0 Hypertensive heart disease with heart failure; R73.03 Prediabetes; Z83.3 Family history of diabetes mellitus
CPT/HCPCS: 36415; 80048; 80053; 81001; 83036; 85025; 85610; 85730; 86850; 86900; 86901; 87086; G0378; J0330; J0694; J1100; J2001; J2250; J2405; J3490; J7060

== ENCOUNTER 2020-03-11 12:51 | Emergency (ER) | payer OTHER, MEDICAID ==
[~2020-03-11] VITALS: Ht 149.9 cm; Wt 64.9 kg
[2020-03-11 14:17] LABS: Basophils # (auto) 0.1 10 ^3/uL (0-0.2); Basophils % (auto) 0.7 % (0.0-2.0); Eosinophils # (auto) 0.3 10 ^3/uL (0-0.8); Eosinophils % (auto) 3.6 % (0.0-7.0); Hematocrit 37.8 % (36.0-46.0); Hemoglobin 12.6 g/dL (12.2-16.2); Lymphocytes # (auto) 2.2 10 ^3/uL (0.4-5.4); Lymphocytes % (auto) 24.1 % (10.0-50.0); Mean Corpuscular Hemoglobin 29.3 pg (28.0-32.0); Mean Corpuscular Hgb Conc. 33.2 g/dL (32.0-36.0); Mean Corpuscular Volume 88.1 fL (80.0-100.0); Monocytes # (auto) 0.7 10 ^3/uL (0-1.3); Monocytes % (auto) 7.4 % (0.0-12.0); Neutrophils # (auto) 5.9 10 ^3/uL (1.6-8.6); Neutrophils % (auto) 64.2 % (37.0-80.0); Platelet Count (auto) 249 10^3/uL (140-450); Red Blood Cells 4.28 10^6/uL (4.0-5.20); Red Cell Distribution Width 14.3 % (11.8-14.3); White Blood Cell 9.2 10^3/uL (4.4-10.8)
[2020-03-11 14:47] LABS: Alanine Aminotransferase 35 U/L (13-56); Albumin 3.7 g/dL (3.4-5.0); Anion Gap 7 (5-15); Aspartate Aminotransferase 29 U/L (15-37); BUN/Creatinine Ratio 14.4; Blood Urea Nitrogen 13 mg/dL (7-18); Calcium 8.5 mg/dL (8.5-10.1); Carbon Dioxide 24 mmol/L (21-32); Chloride 107 mmol/L (98-107); GFR African American 79 mL/min; GFR Non-African American 65 mL/min; Glucose 108 mg/dL (74-106); Sodium 138 mmol/L (136-145)
[2020-03-11 14:52] LABS: Alkaline Phosphatase 76 U/L (45-117); Bilirubin, Total 0.3 mg/dL (0.2-1.0); Total Protein 7.2 g/dL (6.4-8.2)
[2020-03-11 16:13] LABS: Urine WBC None Seen /hpf (0 - 5)
[2020-03-11] MEDS ORDERED: IOHEXOL 350 MG/ML 100ML IJ ONE (16:45)
[2020-03-11 17:13] LABS: Urine Bacteria NONE SEEN /hpf (None Seen); Urine Blood Negative /uL (Negative); Urine Specific Gravity 1.006 (1.001-1.035)
[2020-03-11] MEDS ORDERED: SODIUM CHLORIDE 0.9% 1,000 ML IV ONE (17:30)
[2020-03-11 19:30] VITALS: BP 123/74
== END 2020-03-11 17:36 | disposition home or self-care (01) ==
LOC: ER 12:51
DX: R10.9 Unspecified abdominal pain (principal); I10 Essential (primary) hypertension; E78.5 Hyperlipidemia, unspecified; Z79.82 Long term (current) use of aspirin; Z79.899 Other long term (current) drug therapy; Z88.0 Allergy status to penicillin; Z88.2 Allergy status to sulfonamides
CPT/HCPCS: 36415; 71046; 71275; 80053; 81001; 83735; 84484; 85025; 85379; 99285; Q9967

== ENCOUNTER → 2020-05-02 | Outpatient (CLI) | payer OTHER, MEDICAID | END | disposition home or self-care (01) | LOC: XY 07:30 | PROVIDERS: ATTEND Internal Medicine | DX: M89.8X9 Other specified disorders of bone, unspecified site (principal) | CPT/HCPCS: 78306; A9503 ==

== ENCOUNTER → 2020-06-05 | Outpatient (CLI) | payer OTHER, MEDICAID ==
[2020-06-05 11:20] LABS: Basophils # (auto) 0.1 10 ^3/uL (0-0.2); Basophils % (auto) 1.3 % (0.0-2.0); Eosinophils # (auto) 0.3 10 ^3/uL (0-0.8); Eosinophils % (auto) 4.2 % (0.0-7.0); Hematocrit 40.4 % (36.0-46.0); Hemoglobin 13.6 g/dL (12.2-16.2); Lymphocytes # (auto) 2.4 10 ^3/uL (0.4-5.4); Lymphocytes % (auto) 31.1 % (10.0-50.0); Mean Corpuscular Hemoglobin 29.8 pg (28.0-32.0); Mean Corpuscular Hgb Conc. 33.5 g/dL (32.0-36.0); Monocytes # (auto) 0.5 10 ^3/uL (0-1.3); Monocytes % (auto) 6.1 % (0.0-12.0); Neutrophils # (auto) 4.5 10 ^3/uL (1.6-8.6); Neutrophils % (auto) 57.3 % (37.0-80.0); Nucleated Red Blood Cells % 0.1 %; Platelet Count (auto) 302 10^3/uL (140-450); Red Blood Cells 4.54 10^6/uL (4.0-5.20); Red Cell Distribution Width 13.8 % (11.8-14.3); White Blood Cell 7.8 10^3/uL (4.4-10.8)
[2020-06-05 11:40] LABS: Urine Bacteria NONE SEEN /hpf (None Seen); Urine Blood TRACE /uL (Negative); Urine Specific Gravity 1.019 (1.001-1.035); Urine WBC 2 /hpf (0 - 5)
[2020-06-05 11:53] LABS: Calcium 9.1 mg/dL (8.5-10.1); Potassium 4.3 mmol/L (3.5-5.1)
[2020-06-05 12:04] LABS: Free T4 (Free Thyroxine) 0.95 ng/dL (0.89-1.76)
[2020-06-05 12:09] LABS: Albumin 3.8 g/dL (3.4-5.0); Bilirubin, Total 0.2 mg/dL (0.2-1.0); Total Protein 7.5 g/dL (6.4-8.2)
== END | disposition home or self-care (01) ==
LOC: LAB 10:49
PROVIDERS: ATTEND Internal Medicine
DX: E11.21 Type 2 diabetes mellitus with diabetic nephropathy (principal); M81.0 Age-related osteoporosis without current pathological fracture
CPT/HCPCS: 36415; 80053; 80061; 81001; 82043; 82306; 82607; 83036; 84439; 84443; 85025; 85652

== ENCOUNTER → 2020-06-06 | Outpatient (CLI) | payer OTHER, MEDICAID | END | disposition home or self-care (01) | LOC: XYW 09:05 | PROVIDERS: ATTEND Internal Medicine | DX: I72.0 Aneurysm of carotid artery (principal) | CPT/HCPCS: 70551; 70553 ==

== ENCOUNTER → 2020-06-26 | Outpatient (CLI) | payer OTHER, MEDICAID ==
[2020-06-26 15:40] LABS: Basophils # (auto) 0.1 10 ^3/uL (0-0.2); Basophils % (auto) 0.9 % (0.0-2.0); Eosinophils # (auto) 0.3 10 ^3/uL (0-0.8); Hemoglobin 13.3 g/dL (12.2-16.2); Lymphocytes # (auto) 2.4 10 ^3/uL (0.4-5.4); Lymphocytes % (auto) 26.8 % (10.0-50.0); Mean Corpuscular Hemoglobin 29.8 pg (28.0-32.0); Mean Corpuscular Hgb Conc. 33.2 g/dL (32.0-36.0); Mean Corpuscular Volume 89.8 fL (80.0-100.0); Monocytes # (auto) 0.6 10 ^3/uL (0-1.3); Monocytes % (auto) 6.1 % (0.0-12.0); Neutrophils # (auto) 5.7 10 ^3/uL (1.6-8.6); Neutrophils % (auto) 63.2 % (37.0-80.0); Nucleated Red Blood Cells % 0.1 %; Platelet Count (auto) 275 10^3/uL (140-450); Red Blood Cells 4.46 10^6/uL (4.0-5.20); Red Cell Distribution Width 14.2 % (11.8-14.3)
[2020-06-26 15:56] LABS: Albumin 3.7 g/dL (3.4-5.0); Calcium 9.2 mg/dL (8.5-10.1); Potassium 4.3 mmol/L (3.5-5.1)
[2020-06-26 16:01] LABS: BUN/Creatinine Ratio 13.5; Bilirubin, Total 0.4 mg/dL (0.2-1.0); Total Protein 7.1 g/dL (6.4-8.2)
== END | disposition home or self-care (01) ==
LOC: LAB 15:23
PROVIDERS: ATTEND Internal Medicine
DX: C50.912 Malignant neoplasm of unspecified site of left female breast (principal); Z88.0 Allergy status to penicillin; Z88.2 Allergy status to sulfonamides
CPT/HCPCS: 36415; 80053; 83615; 85025

== ENCOUNTER → 2020-09-04 | Outpatient (CLI) | payer OTHER, MEDICAID ==
[2020-09-04 12:36] LABS: Basophils # (auto) 0.1 10 ^3/uL (0-0.2); Basophils % (auto) 1.2 % (0.0-2.0); Eosinophils # (auto) 0.4 10 ^3/uL (0-0.8); Eosinophils % (auto) 4.6 % (0.0-7.0); Hemoglobin 13.3 g/dL (12.2-16.2); Lymphocytes # (auto) 2.7 10 ^3/uL (0.4-5.4); Mean Corpuscular Hemoglobin 30.2 pg (28.0-32.0); Mean Corpuscular Hgb Conc. 33.4 g/dL (32.0-36.0); Mean Corpuscular Volume 90.4 fL (80.0-100.0); Monocytes # (auto) 0.6 10 ^3/uL (0-1.3); Monocytes % (auto) 6.4 % (0.0-12.0); Neutrophils # (auto) 4.9 10 ^3/uL (1.6-8.6); Neutrophils % (auto) 56.8 % (37.0-80.0); Nucleated Red Blood Cells % 0.1 %; Platelet Count (auto) 285 10^3/uL (140-450); Red Blood Cells 4.42 10^6/uL (4.0-5.20); Red Cell Distribution Width 14.1 % (11.8-14.3); White Blood Cell 8.6 10^3/uL (4.4-10.8)
[2020-09-04 13:50] LABS: Albumin 3.8 g/dL (3.4-5.0); Calcium 8.8 mg/dL (8.5-10.1); Potassium 4.1 mmol/L (3.5-5.1)
[2020-09-04 13:54] LABS: BUN/Creatinine Ratio 15.9; Bilirubin, Total 0.5 mg/dL (0.2-1.0); Total Protein 7.4 g/dL (6.4-8.2)
== END | disposition home or self-care (01) ==
LOC: LAB 12:04
PROVIDERS: ATTEND Internal Medicine
DX: C50.919 Malignant neoplasm of unspecified site of unspecified female breast (principal); K21.9 Gastro-esophageal reflux disease without esophagitis; Z85.528 Personal history of other malignant neoplasm of kidney
CPT/HCPCS: 36415; 80053; 82150; 83615; 83690; 85025; 85049

== ENCOUNTER → 2021-03-10 | Outpatient (CLI) | payer OTHER ==
[2021-03-10 12:17] LABS: Albumin 3.8 g/dL (3.4-5.0); Calcium 8.6 mg/dL (8.5-10.1)
[2021-03-10 12:20] LABS: BUN/Creatinine Ratio 18.3; Bilirubin, Total 0.4 mg/dL (0.2-1.0); Total Protein 6.7 g/dL (6.4-8.2)
== END | disposition home or self-care (01) ==
LOC: LAB 11:07
PROVIDERS: ATTEND Internal Medicine
DX: E11.9 Type 2 diabetes mellitus without complications (principal); M25.539 Pain in unspecified wrist
CPT/HCPCS: 36415; 80053; 83036; 86200; 86431